=== PATIENT | male | born 2000 | race Two or more races ===

== ENCOUNTER 2020-11-06 14:09 | Emergency (ER) | payer SELFPAY ==
[~2020-11-06] VITALS: Ht 190.5 cm; Wt 74.8 kg
[2020-11-06] MEDS ORDERED: ACETAMINOPHEN 500 MG TAB PO ONE ×2 (14:24→14:30)
[2020-11-06] MEDS ORDERED: MIDAZOLAM HCL 5 MG/ML-1ML VIAL IV ONE ×2 (17:45→18:45)
[2020-11-06] MEDS ORDERED: MORPHINE SULFATE 4 MG/ML SYR/VIAL IV ONE (17:45)
[2020-11-06] MEDS ORDERED: ONDANSETRON HCL 4 MG/2 ML VIAL IV ONE (17:45)
[2020-11-06] MEDS ORDERED: fentaNYL CITRATE 100 MCG/2 ML VL IV ONE (17:45)
[2020-11-06] MEDS ORDERED: MIDAZOLAM HCL 5 MG/ML-1ML VIAL ONE (17:54)
[2020-11-06] MEDS ORDERED: SODIUM CHLORIDE 0.9% 1,000 ML IV ONE (18:45)
[2020-11-06 20:32] VITALS: BP 11/66
== END 2020-11-06 20:33 | disposition home or self-care (01) ==
LOC: ER 14:09
DX: S43.005A Unspecified dislocation of left shoulder joint, initial encounter (principal); X58.XXXA Exposure to other specified factors, initial encounter; Y93.89 Activity, other specified; Y92.89 Other specified places as the place of occurrence of the external cause; Y99.8 Other external cause status
CPT/HCPCS: 23650; 73020; 73030; 96361; 96374; 96375; 99285; J2250; J2270; J2405; J3010